=== PATIENT | male | born 1985 | race Caucasian/White ===

== ENCOUNTER → 2016-08-23 | Outpatient (CLI) | payer OTHER | LOC: US 14:05 | DX: E01.0 Iodine-deficiency related diffuse (endemic) goiter (principal); E07.9 Disorder of thyroid, unspecified | CPT/HCPCS: 76536 ==

== ENCOUNTER → 2020-07-10 | Outpatient (CLI) | payer BC | LOC: KOH-I 13:15 | DX: E03.9 Hypothyroidism, unspecified (principal); R13.10 Dysphagia, unspecified | CPT/HCPCS: 76536 ==

== ENCOUNTER → 2020-10-16 | Outpatient (CLI) | payer BC | LOC: CT 10-09 08:00 | DX: R22.1 Localized swelling, mass and lump, neck (principal) | CPT/HCPCS: 70491; Q9967 ==

== ENCOUNTER → 2020-11-12 | Outpatient (CLI) | payer BC | LOC: RAD 08:04 | DX: R13.10 Dysphagia, unspecified (principal) | CPT/HCPCS: 74220 ==